=== PATIENT | female | born 1985 | race Asian ===

== ENCOUNTER 2017-06-23 19:29 | Emergency (ER) | payer SELFPAY ==
[~2017-06-23] VITALS: Ht 172.7 cm; Wt 59.0 kg
[2017-06-23] MEDS ORDERED: NKM (19:57)
[2017-06-23 20:00] VITALS: BP 100/56
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
[2017-06-23] MEDS ORDERED: TYLENOL EXTRA500 MG ORAL (20:23)
[2017-06-23] MEDS ORDERED: LIDODERM700 M1 TOPIC (20:23)
[2017-06-23 20:45] VITALS: BP 100/56
== END 2017-06-23 20:45 | disposition home or self-care (01) ==
LOC: EMR 20:30
DX: M54.5 Low back pain (principal); S80.01XA Contusion of right knee, initial encounter; S80.02XA Contusion of left knee, initial encounter; V43.52XA Car driver injured in collision with other type car in traffic accident, initial encounter; Y92.410 Unspecified street and highway as the place of occurrence of the external cause
CPT/HCPCS: 99283